=== PATIENT | female | born 1985 | race Caucasian/White ===

== ENCOUNTER 2019-06-11 09:20 | Emergency (ER) | payer OTHER ==
[~2019-06-11] VITALS: Ht 160 cm; Wt 61.2 kg
[~2019-06-11 09:20] MED LIST: ACETAMINOPHEN-1 EAC1 PO; AMOXICILLIN875 MG PO; APAP500 PO; CORTISPORIN OTI10 M2 OTIC; CYCLOBENZAPRINE5 MG PO; DERMOPLAST SPRA56 ML; FAMOTIDINE PO; HYDROCORTISONE 01 OZ TP; IBUPROFEN 200200 M1 PO; IBUPROFEN 600600 M1 PO; IBUPROFEN 800800 MG PO; KEFLEX500 MG PO; LANOLIN56 GM; MULTIVITAMINS1 EAC7; NAPROSYN500 MG PO; NOHOMEMEDICATIONS; NORCO 5-325 TA1 EACH PO; NORFLEX100 MG PO; PENICILLIN V P500 MG PO; PENICILLIN VK500 M1 PO; PRENATAL PO; TRAMADOL 50 MG50 MG PO; TUCKS MEDICATE1 EAC1; ZOFRAN ODT4 MG PO
[2019-06-11] MEDS ORDERED: OCUFLOX5 ML OPHTHALMIC (10:46)
[2019-06-11 11:07] VITALS: BP 121/84
== END 2019-06-11 11:08 | disposition home or self-care (01) ==
LOC: ER 09:20
DX: H57.89 Other specified disorders of eye and adnexa (principal); H57.12 Ocular pain, left eye; F17.210 Nicotine dependence, cigarettes, uncomplicated